=== PATIENT | male | born 1970 | race Caucasian/White ===

== ENCOUNTER 2016-11-18 11:41 | Emergency (ER) | payer BC ==
[2016-11-18 12:09] VITALS: BP 141/70
[2016-11-18] MEDS ORDERED: Tetan/Diph/Pertus SYR(Tdap)* 0.5 ML SYR(BOOSTRIX) use SYR IM ONE (13:16)
--- NOTE | 2016-11-18 13:20 | UC ---
Roas Recio Matthew, scribed for Edvin Stewart MD on 11/18/16 at 1314 . Laceration HPI - HPI Summary HPI Summary: Nurse's Note: pt lacerated right 4th finger on the lid of a can at about 11am. bleeding is controlled Note: Vital signs stable, afebrile, pulse oxygen 97%, weekly alcohol, non- smoker, spine fusion 1987 In Room Note: A 46 y/o male presents to [facility] with a laceration to the right 4th finger. The patient lacerated his finger on the lid of a can at 11:00 this morning. He is not UTD on his tetanus shot. No nausea, vomiting, or diarrhea. The patient can walk with a cane and use a granados chair. He originally injured his spinal cord while wrestling in high school. No FHx. - History Of Current Complaint Chief Complaint: UCLaceration Stated Complaint: LACERATION ON FINGER Hx Obtained From: Patient Laceration Location: Finger - RT 4th Mechanism Of Injury: Sharp Trauma Onset/Duration: Sudden Onset, Lasting Hours, Still Present Severity: Mild Pain Intensity: 4 Pain Scale Used: 0-10 Numeric - Allergies/Home Medications Allergies/Adverse Reactions: Allergies Allergy/AdvReac Type Severity Reaction Status Date / Time No Known Allergies Allergy Verified 11/18/16 12:09 Home Medications: Home Medications Baclofen TAB* [Lioresal TAB*] 20 mg PO DAILY PRN 11/18/16 [History Confirmed ] PMH/Surg Hx/FS Hx/Imm Hx Endocrine History Of: Denies: Diabetes Cardiovascular History Of: Denies: Hypertension, Pacemaker/ICD Respiratory History Of: Denies: Asthma GI/ History Of: Denies: Renal Disease - Surgical History Surgical History: Yes Surgery Procedure, Year, and Place: c-spine fusion and wrap C4-5 1987 - Family History Known Family History: Negative: Hypertension - Social History Alcohol Use: Weekly Substance Use Type: None Smoking Status (MU): Never Smoked Tobacco - Immunization History Most Recent Influenza Vaccination: fall 2012 Most Recent Tetanus Shot: unknown Review of Systems Constitutional: Negative Skin: Other - 1.5cm laceration to the 4th right finger Eyes: Negative ENT: Negative Respiratory: Negative Cardiovascular: Negative Gastrointestinal: Negative Genitourinary: Negative Motor: Negative Neurovascular: Negative Musculoskeletal: Negative Neurological: Negative Psychological: Negative All Other Systems Reviewed And Are Negative: Yes Physical Exam Triage Information Reviewed: Yes Appearance: Well-Appearing, No Pain Distress, Well-Nourished Vital Signs: Initial Vital Signs Temp 98.6 F 11/18/16 12:06 Pulse 75 11/18/16 12:06 Resp 16 11/18/16 12:06 BP 141/70 11/18/16 12:06 Pulse Ox 97 11/18/16 12:06 Vital Signs Reviewed: Yes Eyes: Positive: Conjunctiva Clear ENT: Positive: Hearing grossly normal, Pharynx normal, TMs normal. Negative: Muffled/hoarse voice Neck: Positive: Supple, Nontender Respiratory: Positive: Chest non-tender, Lungs clear, Normal breath sounds, No respiratory distress, No accessory muscle use Cardiovascular: Positive: RRR, No Murmur Abdomen Description: Positive: Nontender, No Organomegaly, Soft Bowel Sounds: Positive: Present Musculoskeletal: Positive: Strength Intact Neurological: Positive: Alert Psychological: Positive: Age Appropriate Behavior Skin Exam: Other - 4TH FINGER OF THE RIGHT HAND HAS A 1.5CM LACERATION OVER THE TIP OF THE DISTAL DIGIT. Circulation, sensory, and motor sensation are intact. The wound is clear and skin adhesive was used to bring the edges together. Skin: Negative: rashes Laceration Repair - Laceration Repair 1 Description: Linear Laceration Size After Repair: Length (cm) - 1.5cm, Width (mm) - 1mm Modified For Repair: No Cleansing Completed Via Routine Prep: No Irrigation With Pressure Irrigation Device: No Closure Material: Skin Adhesive - good approximation, hemostasis Laceration Course/Dx - Differential Dx - Laceration/Wound Provider Diagnoses: 4th finger of the right hand superficial finger laceration. Updated Tetanus Discharge - Discharge Plan Condition: Stable Disposition: HOME Patient Education Materials: Diphtheria/Pertussis/Tetanus Vaccine (DTwP) (By injection), Skin Adhesive Care (ED) Referrals: Fermín Garcia MD [Primary Care Provider] - Additional Instructions: WE DISCUSSED: finger laceration; skin adhesive used. Watch for signs of infection; follow up as needed. The documentation as recorded by the Rosa eid Matthew accurately reflects the service I personally performed and the decisions made by eTrry lozano David M, MD.
== END 2016-11-18 13:32 | disposition home or self-care (01) ==
LOC: UCEAST 11:41
DX: S61.214A Laceration without foreign body of right ring finger without damage to nail, initial encounter (principal); W26.8XXA Contact with other sharp object(s), not elsewhere classified, initial encounter; Y93.9 Activity, unspecified; Y92.9 Unspecified place or not applicable; Z23 Encounter for immunization; R03.0 Elevated blood-pressure reading, without diagnosis of hypertension
CPT/HCPCS: 12001; 90471; 90715; 99201; G0463

== ENCOUNTER 2018-03-21 13:55 | Emergency (ER) | payer BC ==
[2018-03-21 14:05] VITALS: BP 143/78
--- NOTE | 2018-03-21 14:31 | RAD ---
Indication: RIGHT ankle pain laterally following injury/fall 45 minutes ago. Comparison: No relevant prior exams available [place] [facility] [place]. Technique: AP, mortise, and lateral views RIGHT ankle. Report: Significant soft tissue swelling most marked over the lateral malleolus. Negative for fracture or malalignment. Small os trigonum accessory ossicle. IMPRESSION: #. Negative for fracture. #. Given magnitude of soft tissue swelling most prominent over the lateral malleolus consider potential lateral supporting ligament injury.
--- NOTE | 2018-03-21 14:34 | UC ---
Lower Extremity/Ankle HPI - HPI Summary HPI Summary: Patient is a 47-year-old male presenting to the immediately following inversion of the ankle after falling [employer]. Endorses a large amount of swelling and a 2/10 pain at rest. He is unable to ambulate due to pain and swelling. Denies any tingling, but endorses some numbness to the foot. Denies any pain to the foot or the knee. Pulses +2 intact bilaterally. He has been otherwise healthy. - History of Current Complaint Chief Complaint: UCLowerExtremity Stated Complaint: ANKLE INJURY Time Seen by Provider: 03/21/18 14:09 Hx Obtained From: Patient Onset/Duration: Gradual Onset Severity Initially: Moderate Severity Currently: Moderate Pain Intensity: 0 Pain Scale Used: 0-10 Numeric Aggravating Factor(s): Standing, Ambulation Alleviating Factor(s): Rest Able to Bear Weight: No - Risk Factors Gout Risk Factors: Negative DVT Risk Factors: Negative Septic Arthritis Risk Factor: Negative - Allergies/Home Medications Allergies/Adverse Reactions: Allergies Allergy/AdvReac Type Severity Reaction Status Date / Time No Known Allergies Allergy Verified 03/21/18 14:05 PMH/Surg Hx/FS Hx/Imm Hx Previously Healthy: Yes - Surgical History Surgical History: Yes Surgery Procedure, Year, and Place: c-spine fusion and wrap C4-5 1987 - Family History Known Family History: Negative: Hypertension - Social History Occupation: Employed Full-time Lives: With Family Alcohol Use: Daily Alcohol Amount: a beer a day Substance Use Type: None Smoking Status (MU): Never Smoked Tobacco - Immunization History Most Recent Influenza Vaccination: fall 2012 Most Recent Tetanus Shot: unknown Review of Systems Constitutional: Negative Respiratory: Negative Cardiovascular: Negative Motor: Decreased ROM - Limits (limitations with plantarflexion and dorsiflexion d/t pain and swelling - Musculoskeletal: Arthralgia - lateral right ankle pain, Myalgia Neurological: Negative Psychological: Negative Is Patient Immunocompromised?: No All Other Systems Reviewed And Are Negative: Yes Physical Exam Triage Information Reviewed: Yes Appearance: Well-Appearing, No Pain Distress, Well-Nourished Vital Signs: Initial Vital Signs Temp 98.4 F 03/21/18 14:01 Pulse 75 03/21/18 14:01 Resp 16 03/21/18 14:01 BP 143/78 03/21/18 14:01 Pulse Ox 100 03/21/18 14:01 Vital Signs Reviewed: Yes Eye Exam: Normal Neck exam: Normal Neck: Positive: Supple Respiratory Exam: Normal Respiratory: Positive: Chest non-tender, Lungs clear Cardiovascular Exam: Normal Cardiovascular: Positive: RRR Musculoskeletal: Positive: Other: - right lateral ankle pain Psychological Exam: Normal Psychological: Positive: Normal Response To Family Skin Exam: Normal Lower Extremity Course/Dx - Course Course Of Treatment: During the course of treatment, the patient's evaluated for right ankle swelling. Pain and swelling most notable over to the lateral side of the ankle with a probable ligamentous injury. X-ray obtained which shows likely ligamentous injury due to the amount of swelling. No fracture identified. Patient is referred to orthopedic clinic. He will remain nonweightbearing. Declines gel splint and crutches and will continue to use his wheelchair as needed. - Differential Dx/Diagnosis Differential Diagnosis/HQI/PQRI: Sprain, Strain Provider Diagnoses: Ligamentous right ankle injury Discharge - Sign-Out/Discharge Documenting (check all that apply): Discharge/Admit/Transfer - Discharge Plan Condition: Stable Disposition: HOME Patient Education Materials: Ankle Sprain (ED) Referrals: Fermín Garcia MD [Primary Care Provider] - Brendon Jesus MD [Medical Doctor] - Additional Instructions: Please stay non weight bearing until you follow up with orthopedics Likely ligament injury Call today for an appt Leland bandage for comfort ibuprofen 600mg three times daily for swelling and discomfort Ice Elevate - Billing Disposition and Condition Condition: STABLE Disposition: Home
== END 2018-03-21 14:55 | disposition home or self-care (01) ==
LOC: UCEAST 13:55
DX: S93.491A Sprain of other ligament of right ankle, initial encounter (principal); X50.1XXA Overexertion from prolonged static or awkward postures, initial encounter; Y92.9 Unspecified place or not applicable
CPT/HCPCS: 99211; G0463

== ENCOUNTER 2019-01-10 15:12 | Emergency (ER) | payer MEDICARE, BC ==
[2019-01-10] MEDS ORDERED: LORazepam TAB(*) 1 MG PO ONE (17:00)
[2019-01-10] MEDS ORDERED: Ketorolac INJ* 30 MG/ML 1 ML VIAL IM ONE (17:00)
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
[2019-01-10 18:41] VITALS: BP 124/73
== END 2019-01-10 20:32 | disposition home or self-care (01) ==
LOC: ED 15:12
DX: S32.018A Other fracture of first lumbar vertebra, initial encounter for closed fracture (principal); S32.028A Other fracture of second lumbar vertebra, initial encounter for closed fracture; S22.41XA Multiple fractures of ribs, right side, initial encounter for closed fracture; W10.9XXA Fall (on) (from) unspecified stairs and steps, initial encounter; Y92.9 Unspecified place or not applicable
CPT/HCPCS: 72070; 72131; 96372; 99282; A9270-GY; J1885